=== PATIENT | male | born 1965 | race Caucasian/White ===

== ENCOUNTER 2016-04-11 15:19 | Emergency (ER) | payer SELFPAY ==
[2016-04-11 15:33] VITALS: TEMP 97.9
[2016-04-11] MEDS: KETOROLAC TROMETHAMINE INJ 30 MG/ML VIAL IM ONE (15:49)
[2016-04-11] MEDS: LACTATED RINGERS 1,000 ML IVS ONE (15:49)
--- NOTE | 2016-04-11 17:00 | ED.PDOC ---
History of Present Illness - General Chief Complaint: Headache Stated Complaint: headache Time Seen by Provider: 04/11/16 15:30 Source: patient Exam Limitations: no limitations - History of Present Illness Initial Comments: the patient is a 50-year-old male presenting secondary to a headache for 3 days. Headache is actually circumferential seems to start at the back of his scalp. No meningeal signs. No nausea or vomiting. He does feel increased pressure when he goes to lean over return to the side. He has also had increased runny nose over the last few days. He feels increased pressure inside his eyeballs according to him. No rashes. No altered mental status. No fevers. He has had some purulent nasal nasal drainage primarily out of the left nares.the [place] He does not yet have a primary care doctor. Severity: moderate Improving Factors: nothing Worsening Factors: nothing Associated Symptoms: malaise Allergies/Adverse Reactions: Allergies NO KNOWN ALLERGY Allergy (Verified 04/11/16 15:36) Home Medications: Ambulatory Orders Aspirin [Aspirin Adult Low Dose] 81 mg PO DAILY 04/11/16 Azithromycin 500 mg PO DAILY #7 tab 04/11/16 Propranolol LA [Inderal LA] 80 mg PO BEDTIME 04/11/16 predniSONE [Prednisone] 20 mg PO DAILY #4 tab 04/11/16 Review of Systems - Review of Systems Constitutional: States: malaise EENTM: States: nose congestion Respiratory: States: cough - mild Cardiology: States: no symptoms reported Gastrointestinal/Abdominal: States: no symptoms reported Genitourinary: States: no symptoms reported Musculoskeletal: States: no symptoms reported Skin: States: no symptoms reported Neurological: States: headache Endocrine: States: no symptoms reported All other Systems: No Change from Baseline Past Medical History (General) - Patient Medical History Hx Hypertension: Yes Surgical History: appendectomy, tonsillectomy - Vaccination History Hx Tetanus, Diphtheria Vaccination: Yes Hx Influenza Vaccination: No Hx Pneumococcal Vaccination: No - Social History Hx Tobacco Use: Yes Hx Chewing Tobacco Use: Yes - Activities of Daily Living Hospice Agency (if applicable):: None - Female History Patient is a Female of Child Bearing Age (10 -59 yrs old): No Patient : No Family Medical History - Family History Mother Family History: Unknown Physical Exam - Physical Exam General Appearance: Alert, Comfortable, No apparent distress Eye Exam: bilateral normal Ears, Nose, Throat: normal pharynx, nasal congestion - nares are red. Some purulent nasal drainage from the left nares. 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 He does have increased pressure pain to the left maxillary sinus. Skin Exam: normal color Comments: Vital Signs - 24 hr 04/11/16 15:23 Temperature 97.9 F Pulse Rate [ 66 pulse ox] Respiratory 20 Rate Blood Pressure 163/98 [Left Arm] O2 Sat by Pulse 96 Oximetry Progress - Progress Progress: 04/11/16 17:02 the patient is a 50-year-old male presenting with headache that is most likely a mixed headache due to sinusitis and tension for the last 3 days. He needs to keep himself well-hydrated. Ibuprofen can be used 3 times daily for the next 2 days. A heat pad may also help as well. The patient will be placed on Augmentin for 7 days for the sinusitis as well as low-dose prednisone for the next 4 days. ER warnings were given for any acute worsening. He needs to obtain a primary care doctor and follow-up with them as soon as possible. additionally he can take generic [id number] Zyrtec daily for the next 2 weeks at night. - Results/Orders Results/Orders: 04/11/16 15:48 CARDIAC ENZYME GROUP Stat COMPLETE METABOLIC PROFILE Stat Laboratory Results - last 24 hr 04/11/16 15:48 WBC 12.3 H RBC 5.42 Hgb 15.6 Hct 46.3 MCV 85.4 MCH 28.8 MCHC 33.7 RDW 13.5 Plt Count 207 MPV 10.9 H Absolute Neuts (auto) 9.40 H Absolute Lymphs (auto) 1.70 Absolute Monos (auto) 0.80 Absolute Eos (auto) 0.30 Absolute Basos (auto) 0.10 Neutrophils % 76.4 Lymphocytes % 13.6 L Monocytes % 6.6 Eosinophils % 2.2 Basophils % 1.2 ESR 5 Sodium 137 Potassium 3.5 L Chloride 105 Carbon Dioxide 24 Anion Gap 11.5 L BUN 11 Creatinine 1.03 BUN/Creatinine Ratio 10.7 Random Glucose 117 H Serum Osmolality 274.2 L Calcium 8.9 Total Bilirubin 0.5 AST 19 ALT 29 Alkaline Phosphatase 112 Creatine Kinase 46 CK-MB (CK-2) 0.7 Troponin I < 0.02 Serum Total Protein 7.2 Albumin 4.1 Globulin 3.1 Albumin/Globulin Ratio 1.3 Departure - Departure Clinical Impression: Tension type headache Qualifiers: Headache chronicity pattern: acute headache Intractability: not intractable Qualifier Code: (G44.209) Tension-type headache, unspecified, not intractable Sinusitis Qualifiers: Sinusitis location: maxillary Chronicity: acute Recurrence: not specified Qualifier Code: (J01.00) Acute maxillary sinusitis, unspecified Disposition: Discharge to Home or Self Care Condition: Fair Departure Forms: ED Discharge - Pt. Copy, Patient Portal Self Enrollment Instructions: DI for Sinusitis, Tension Headache Diet: regular diet Activity: increase activity as tolerated Prescriptions: Azithromycin 500 mg PO DAILY #7 tab predniSONE [Prednisone] 20 mg PO DAILY #4 tab Home Medications: Ambulatory Orders Aspirin [Aspirin Adult Low Dose] 81 mg PO DAILY 04/11/16 Azithromycin 500 mg PO DAILY #7 tab 04/11/16 Propranolol LA [Inderal LA] 80 mg PO BEDTIME 04/11/16 predniSONE [Prednisone] 20 mg PO DAILY #4 tab 04/11/16 Additional Instructions: the patient is a 50-year-old male presenting with headache that is most likely a mixed headache due to sinusitis and tension for the last 3 days. He needs to keep himself well-hydrated. Ibuprofen can be used 3 times daily for the next 2 days. A heat pad may also help as well. The patient will be placed on Augmentin for 7 days for the sinusitis as well as low-dose prednisone for the next 4 days. ER warnings were given for any acute worsening. He needs to obtain a primary care doctor and follow-up with them as soon as possible. additionally he can take generic [id number] Zyrtec daily for the next 2 weeks at night.
[2016-04-11 17:21] VITALS: BP 158/91; O2SAT 98
== END 2016-04-11 17:15 | disposition home or self-care (01) ==
LOC: ER 15:19
DX: G44.209 Tension-type headache, unspecified, not intractable (principal); J01.00 Acute maxillary sinusitis, unspecified; I10 Essential (primary) hypertension; Z79.899 Other long term (current) drug therapy; Z79.82 Long term (current) use of aspirin; Z87.891 Personal history of nicotine dependence
CPT/HCPCS: 36415; 80053; 82550; 82553; 84484; 85025; 85651; 87804; J1885; J7120

== ENCOUNTER → 2016-09-22 | Outpatient (CLI) | payer BC | LOC: LAB 08:19 | PROVIDERS: ATTEND Nurse Practitioner Family | DX: I10 Essential (primary) hypertension (principal) ==

== ENCOUNTER → 2017-02-02 | Outpatient (CLI) | payer BC ==
--- NOTE | 2017-02-05 08:54 | RAD ---
EXAM DESCRIPTION: Wrist,Left 3 Views CLINICAL HISTORY: WRIST STRAIN COMPARISON: None. TECHNIQUE: 3 views left. FINDINGS: Mild degenerative changes are observed in the metacarpal carpal articulation of the first digit. No fracturing is detected. IMPRESSION: No fracturing is detected. Electronically signed by: Tomi Morris MD 02/05/2017 8:53 AM [facility]
== END | disposition home or self-care (01) ==
LOC: RAD 10:37
PROVIDERS: ATTEND Nurse Practitioner Family
DX: S66.912A Strain of unspecified muscle, fascia and tendon at wrist and hand level, left hand, initial encounter (principal)

== ENCOUNTER 2017-07-04 05:44 | Day surgery (SDC) | payer BC, MEDICARE ==
[2017-07-04] MEDS ORDERED: LACTATED RINGERS 1,000 ML ONE (06:11)
[2017-07-04] MEDS ORDERED: MIDAZOLAM INJ 2 MG/2 ML VIAL ONE (08:19)
[2017-07-04] MEDS ORDERED: fentaNYL CITRATE INJ 50 MCG/ML AMP ONE (08:19)
--- NOTE | 2017-07-04 08:45 | OP ---
DATE OF PROCEDURE: 07/04/17 PREOPERATIVE DIAGNOSIS: 1. Change in bowel habits. POSTOPERATIVE DIAGNOSIS: PROCEDURE: 1. Colonoscopy. SURGEON: Harish Rodgers MD. ANESTHESIA: MAC. PROCEDURE: Informed consent was obtained prior to sedation. The preprocedure cardiopulmonary assessment was satisfactory. The patient was placed in the left lateral decubitus position and was sedated. The tip of the Olympus colonoscope was inserted in the rectum and guided through the entire colon under direct visualization. The ileocecal valve and appendiceal orifice appear unremarkable. The colonoscopy prep was poor to fair. Slow withdrawal was started at this time. There was small diverticulosis in the sigmoid colon. No major polyps or masses were identified despite a fair prep. In the rectum, there was no evidence of internal hemorrhoids on retroflexion view. Biopsies were done with cold forceps for histology of the rectum to rule out microscopic colitis. The scope was then withdrawn from the patient and the procedure was terminated. RECOMMENDATION: 1. Repeat colonoscopy in one year for colorectal cancer screen purposes due to poor prep. 2. Followup path. 3. Followup in GI office in 4 weeks. 4. Resume home medications. 5. Regular activity. 6. Regular diet. 7. Discharge home. #[id number] [facility]
[2017-07-04 09:44] VITALS: O2SAT 95
[2017-07-04 09:48] VITALS: BP 119/83; TEMP 97
[2017-07-04] MEDS ORDERED: LIDOCAINE 1% 10 ML VIAL INJ ONE (10:00)
[2017-07-04] MEDS ORDERED: PROPOFOL 200 MG/20 ML VIAL IV ONE (10:00)
== END 2017-07-04 09:35 | disposition home or self-care (01) ==
LOC: AMB 05:44
DX: R19.4 Change in bowel habit (principal); K57.30 Diverticulosis of large intestine without perforation or abscess without bleeding; K59.1 Functional diarrhea; K59.01 Slow transit constipation; R14.0 Abdominal distension (gaseous); F17.220 Nicotine dependence, chewing tobacco, uncomplicated; I10 Essential (primary) hypertension; E66.9 Obesity, unspecified; Z68.28 Body mass index [BMI] 28.0-28.9, adult; Z79.899 Other long term (current) drug therapy
CPT/HCPCS: 00811; 45380; 88305; J2250; J3010; J3490; J7120

== ENCOUNTER 2020-02-21 17:40 | Emergency (ER) | payer BC, MEDICARE, OTHER ==
[2020-02-21] MEDS ORDERED: OXYMETAZOLINE NASAL SPRAY 15 ML BTTL BNAS PRN (18:49)
[2020-02-21 18:53] VITALS: TEMP 98; O2SAT 95
--- NOTE | 2020-02-21 18:54 | ED.PDOC ---
History of Present Illness - General Chief Complaint: ENT Problem Stated Complaint: Nose bleed Time Seen by Provider: 02/21/20 18:49 - History of Present Illness Initial Comments: PATIENT NOSE BLEED STARTED AT HOME ABOUT 1 HOUR AGO, HAS STOPPED NOW. PRIMARILY LEFT NOSTRIL PER PATIENT. DENIES LIGHT HEADED, SOB DIAPHORESIS. N Severity: mild Prearrival Treatment: no prearrival treatment Improving Factors: nothing Worsening Factors: nothing Associated Symptoms: denies symptoms Allergies/Adverse Reactions: Allergies Mushroom Extract Complex Adverse Reaction (Verified 06/28/17 14:18) Home Medications: Ambulatory Orders Propranolol LA [Inderal LA] 80 mg PO BID 04/11/16 Hydrochlorothiazide 50 mg PO DAILY 06/28/17 Review of Systems - Review of Systems Constitutional: States: no symptoms reported EENTM: States: see HPI Respiratory: States: no symptoms reported Cardiology: States: no symptoms reported Gastrointestinal/Abdominal: States: no symptoms reported Genitourinary: States: see HPI Past Medical History (General) - Patient Medical History Hx Congestive Heart Failure: No Hx Hypertension: Yes Hx MRSA: No - Vaccination History Hx Tetanus, Diphtheria Vaccination: Yes Hx Influenza Vaccination: No Hx Pneumococcal Vaccination: No - Social History Hx Tobacco Use: Yes Hx Chewing Tobacco Use: Yes - Female History Patient : No Family Medical History - Family History Mother Family History: Unknown Physical Exam - Physical Exam General Appearance: Alert, Well Developed, Well Groomed, Well Hydrated, Well Nou rished Nasal Exam: normal inspection, dried blood Throat Exam: normal mouth inspection, pharynx normal Neck: non-tender, full range of motion, supple, normal inspection Cardiovascular/Respiratory: regular rate, rhythm, no M/R/G, normal peripheral pulses Abdominal Exam: non-tender, no organomegaly Neurologic: no motor/sensory deficits, alert, normal mood/affect, oriented x 3 Skin Exam: normal color, warm/dry, cyanosis Departure - Departure Clinical Impression: Epistaxis Time of Disposition: 18:51 Disposition: Discharge to Home or Self Care Condition: Good Departure Forms: ED Discharge - Pt. Copy, Patient Portal Self Enrollment Instructions: DI for Ear Pain-Adult, Nosebleeds Referrals: LAUREN AMADOR IV, BUILDING ENERGY RETROFIT TECHNICIAN [Primary Care Provider] - 1-2 Weeks Home Medications: Ambulatory Orders Propranolol LA [Inderal LA] 80 mg PO BID 04/11/16 Hydrochlorothiazide 50 mg PO DAILY 06/28/17 Additional Instructions: 1) REPEAT AFRIN NS IN 8 HOURS: 2 SPRAYS EACH NOSTRIL, WAIT 5 MINUTES AND REPEAT. 2) ZYRTEC D: 1 TABLET TWICE DAILY FOR 7 DAYS. 3) COOL MIST HUMIDIFIER FOR YOUR ROOM, CONTINUOUS FOR THE NEXT 2 WEEK WHILE HOME. MOST IMPORTANT !!!!! DO NOT TOUCH YOUR DOSE AT ALL EXCEPT TO PINCH FIRMLY FOR 30 MINUTES IF MORE BLEEDING. DO NOT BLOW, PICK, RUB, DAB, PUT ANYTHING UP OR OTHERWISE DISTURB YOUR NOSE !!!!!
[2020-02-21 19:11] VITALS: BP 146/101
== END 2020-02-21 19:02 | disposition home or self-care (01) ==
LOC: ER 17:40
DX: R04.0 Epistaxis (principal); I10 Essential (primary) hypertension; Z87.891 Personal history of nicotine dependence; Z79.899 Other long term (current) drug therapy